=== PATIENT | female | born 1935 | race Caucasian/White ===

== ENCOUNTER 2017-04-22 13:04 | Inpatient (IN) | payer MEDICARE, BC ==
[2017-04-22 13:52] LABS: CHLORIDE,CL 98 mmol/L (98-109); SODIUM,NA 138 mmol/L (138-146)
[2017-04-22] MEDS ORDERED: Meropenem 1 GM in Sodium Chloride 0.9% 100 ML IV ONE (14:19)
[2017-04-22] MEDS ORDERED: ceFAZolin 1 GM Vial IVPUSH SCH (14:30)
[2017-04-22] MEDS ORDERED: Meropenem 1 GM in Sodium Chloride 0.9% 100 ML IV SCH ×4 (14:45)
--- NOTE | 2017-04-22 14:53 | EDM.PDOC ---
ED HPI GENERAL MEDICAL PROBLEM - General Chief Complaint: Fever Stated Complaint: fever, decreased LOC Time Seen by Provider: 04/22/17 13:04 Source of Information: Reports: EMS, [facility] Records History Limitations: Reports: Altered Mental Status - History of Present Illness INITIAL COMMENTS - FREE TEXT/NARRATIVE: [facility] staff relates that pt. noted to have decreased LOC last evening and this AM. Pt. temp. was checked and found to be 104.1 degrees F. She was given acetaminophen suppositories which decreased temp. to approx. 102 degrees F. She is normally verbal but has a history of dementia and has said very little in the past 24 hours. She has been unable to eat or feed herself and has not taken her medications. [facility] was 107/63. Staff denies coughing. Pt. is unable to provide a ROS. Onset: Today Onset Date: 04/21/17 Location: Reports: Lower Extremity, Left Associated Symptoms: Reports: Fever/Chills, Weakness - Related Data Allergies Allergy/AdvReac Type Severity Reaction Status Date / Time lisinopril Allergy Cannot Verified 02/11/14 10:22 Remember Penicillins Allergy Cannot Verified 02/11/14 10:22 Remember Home Meds: Home Meds Acetaminophen [Tylenol] 650 mg PO Q4H PRN 02/10/14 [History] Aspirin [Halfprin] 81 mg PO DAILY 02/10/14 [History] Atenolol [Tenormin] 25 mg PO DAILY 02/10/14 [History] Calcium Carbonate/Vitamin D3 [Calcium 500 + Vit D 200 Caplet] 1 tab PO BID 02/10 [History] Cyanocobalamin (Vitamin B-12) [Cyanocobalamin Injection] 1,000 mcg IM .MONTHLY 02/10/14 [History] Donepezil HCl [Donepezil HCl] 10 mg PO DAILY 02/10/14 [History] Insulin Aspart [Novolog Flexpen] 3 units SQ BRK 02/10/14 [History] Insulin Aspart [Novolog Flexpen] 10 units SQ DAILY@1200 02/10/14 [History] Insulin Aspart [Novolog Flexpen] 20 units SQ DAILY@1730 02/10/14 [History] Latanoprost [Xalatan 0.005% Ophth Soln] 1 drop EYEBOTH BEDTIME 02/10/14 [History ] Losartan Potassium [Losartan Potassium] 25 mg PO DAILY 02/10/14 [History] Memantine HCl [Namenda] 10 mg PO BID 02/10/14 [History] Methyclothiazide [Methyclothiazide] 5 mg PO DAILY 02/10/14 [History] Multivitamin [Multi Vitamin Daily] 1 tab PO DAILY 02/10/14 [History] Polyethylene Glycol 3350 [MiraLAX] 8.5 gm PO DAILY 02/10/14 [History] Spironolactone [Spironolactone] 25 mg PO DAILY 02/10/14 [History] Timolol Maleate [Timoptic-XE 0.5% Ophth Gel] 1 drop EYEBOTH DAILY 02/10/14 [ History] metFORMIN [Glucophage] 1,000 mg PO BIDM 02/10/14 [History] Ferrous Gluconate 324 mg PO DAILY 04/22/17 [History] Omeprazole 20 mg PO DAILY 04/22/17 [History] Phenylephrine HCl/Weare Butter [Preparation H Suppository] 1 each RC ASDIRECTED PRN 04/22/17 [History] Sertraline [Zoloft] 25 mg PO DAILY 04/22/17 [History] Simvastatin [Zocor] 5 mg PO BEDTIME 04/22/17 [History] Warfarin [Coumadin] 5 mg PO ASDIRECTED 04/22/17 [History] Past Medical History HEENT History: Reports: Glaucoma Cardiovascular History: Reports: High Cholesterol, Hypertension Respiratory History: Reports: PE Genitourinary History: Reports: Urinary Incontinence Neurological History: Reports: Alzheimers Disease, TIA Psychiatric History: Reports: Alzheimers Disease, Dementia Endocrine/Metabolic History: Reports: Diabetes, Type II Hematologic History: Reports: Anemia, B12 Deficiency Oncologic (Cancer) History: Reports: Breast, Lung Social & Family History - Tobacco Use Smoking Status *Q: Never Smoker ED [facility] GENERAL - Review of Systems Review Of Systems: See Below Constitutional: Reports: Fever, Fatigue, Decreased Appetite Respiratory: Denies: Shortness of Breath, Wheezing, Cough, Sputum Cardiovascular: Denies: Syncope GI/Abdominal: Denies: Black Stool, Diarrhea, Difficulty Swallowing, Distension, Hematemesis, Hematochezia, Melena, Mucous in Stool, Vomiting : Reports: Incontinence Musculoskeletal: Reports: Other (pain on palpation of L lower extremity) Skin: Reports: Erythema (L lower extremity) Neurological: Reports: No Symptoms Psychiatric: Reports: No Symptoms Hematologic/Lymphatic: Reports: No Symptoms Immunologic: Reports: No Symptoms ED EXAM, GENERAL - Physical Exam Exam: See Below Free Text/Narrative:: large area of unraised erythema noted to L lower extremity, extending from ankle to mid thigh area. This area was outlined in ink. Lung sounds were clear. Exam Limited By: Altered Mental Status General Appearance: No Apparent Distress, Obtunded Eye Exam: Bilateral Eye: EOMI, PERRL Throat/Mouth: Normal Inspection, Normal Lips, Normal Teeth, Normal Gums, Normal Oropharynx, Normal Voice, No Airway Compromise Head: Atraumatic, Normocephalic Neck: Normal Inspection, Supple, Non-Tender, Full Range of Motion Respiratory/Chest: No Respiratory Distress, Lungs Clear, Normal Breath Sounds, No Accessory Muscle Use, Chest Non-Tender Cardiovascular: Normal Peripheral Pulses, Regular Rate, Rhythm, No Edema, No Gallop, No JVD, No Murmur, No Rub Peripheral Pulses: 2+: Posterior Tibial (L), Posterior Tibial (R), Dorsalis Pedis (L), Dorsalis Pedis (R) GI/Abdominal: Normal Bowel Sounds, Soft, No Distention, No Mass, Pelvis Stable (Female) Exam: Deferred Rectal (Female) Exam: Deferred Back Exam: Normal Inspection, Full Range of Motion Extremities: Normal Range of Motion, Normal Capillary Refill, Increased Warmth ( LLE), Redness (LLE) Neurological: Normal Gait, Confused, Disoriented Psychiatric: Flat Affect Skin Exam: Warm, Dry, Intact, Other (flat, well-demarcated area of erythema to LLE) Lymphatic: No Adenopathy EKG INTERPRETATION EKG Date: 04/22/17 Rhythm: NSR Course - Vital Signs Last Recorded V/S: Last Vital Signs Temp 38.2 C H 04/22/17 13:04 Pulse 91 04/22/17 13:04 Resp 16 04/22/17 13:04 BP 115/48 L 04/22/17 13:04 Pulse Ox 95 04/22/17 13:04 - Orders/Labs/Meds Orders: Active Orders 24 hr Category Date Time Status Chest 1V Frontal [CR] Stat Exams 04/22/17 13:15 Ordered CULTURE BLOOD [BC] Stat Lab 04/22/17 13:15 Ordered CULTURE BLOOD [BC] Stat Lab 04/22/17 13:15 Ordered Meropenem [Merrem] 1 gm Med 04/22/17 14:45 Ordered Sodium Chloride 0.9% [Normal Saline] 100 ml IV Q12H Vancomycin 1,250 mg Med 04/22/17 14:45 Ordered Sodium Chloride 0.9% [Normal Saline] 250 ml IV Q24H Blood Culture x2 Reflex Set [OM.PC] Stat Oth 04/22/17 13:15 Ordered Medication Orders Meropenem 1 gm/ Sodium (Chloride) 100 mls @ 200 mls/hr IV Q12H RAHDA Last Admin: 04/22/17 14:45 Dose: 200 mls/hr Vancomycin HCl 1,250 mg/ (Sodium Chloride) 250 mls @ 200 mls/hr IV Q24H [facility] Labs: Laboratory Tests 04/22/17 04/22/17 04/22/17 Range/Units 13:30 13:32 13:32 WBC 15.0 H (4.0-10.0) x10^3/uL RBC 3.67 L (4.00-5.50) x10^6/uL Hgb 10.3 L (12.0-16.0) g/dL Hct 31.6 L (33.0-47.0) % MCV 86.1 (78.0-93.0) fL MCH 28.1 (26.0-32.0) pg MCHC 32.6 (32.0-36.0) g/dL RDW Coeff of Filipe 16.5 H (10.0-15.0) % Plt Count 297 D (130-400) x10^3/uL Neut % (Auto) 88.6 H (50.0-80.0) % Lymph % (Auto) 6.9 L (25.0-50.0) % [place] % (Auto) 4.1 (2.0-11.0) % Eos % (Auto) 0.1 (0.0-4.0) % Baso % (Auto) 0.3 (0.2-1.2) % PT 16.3 H (9.8-11.8) SEC INR 1.5 L (2.0-3.5) Sodium (138-146) mmol/L Potassium (3.5-4.9) mmol/L Chloride (98-109) mmol/L Carbon Dioxide (24-29) mmol/L BUN (8-26) mg/dL Creatinine (0.6-1.3) mg/dL Est Cr Clr Drug Dosing Estimated GFR (MDRD) Glucose (70-105) mg/dL Lactic Acid (0.4-2.0) mmol/L Calcium (8.5-10.1) mg/dL Corrected Calcium (8.5-10.1) mg/dL Phosphorus (2.6-4.7) mg/dL Magnesium (1.8-2.4) mg/dL Total Bilirubin (0.2-1.0) mg/dL AST (15-37) U/L ALT (14-59) U/L Alkaline Phosphatase (46-116) U/L Creatine Kinase (26-192) U/L POC Troponin I (0.00-0.08) ng/mL Troponin I C-Reactive Protein (<=0.9) mg/dL Total Protein (6.4-8.2) g/dL Albumin (3.4-5.0) g/dL Globulin Albumin/Globulin Ratio Urine Color Dark yellow H (YELLOW) Urine Appearance Slightly cloudy H (CLEAR) Urine pH 5.5 (5.0-8.0) Ur Specific [place] >=1.030 Urine Protein >=300 H (NEGATIVE) mg/dL Urine Glucose (UA) Negative (NEGATIVE) mg/dL Urine Ketones Negative (NEGATIVE) mg/dL Urine Occult Blood Moderate H (NEGATIVE) Urine Nitrite Negative (NEGATIVE) Urine Bilirubin Small H (NEGATIVE) Urine Urobilinogen 0.2 (0.2) EU/dL Ur Leukocyte Esterase Negative (NEGATIVE) Urine RBC 0-5 (NOT SEEN) /HPF Urine WBC 0-5 (NOT SEEN) /HPF Ur Squamous Epith Cells Rare (NEGATIVE) /HPF Amorphous Sediment Moderate Urine Bacteria Not seen (NEGATIVE) /HPF Hyaline Casts Rare H (NEGATIVE) /HPF Urine Mucus Rare H (NEGATIVE) /LPF 04/22/17 04/22/17 04/22/17 Range/Units 13:32 13:32 13:47 WBC (4.0-10.0) x10^3/uL RBC (4.00-5.50) x10^6/uL Hgb (12.0-16.0) g/dL Hct (33.0-47.0) % MCV (78.0-93.0) fL MCH (26.0-32.0) pg MCHC (32.0-36.0) g/dL RDW Coeff of [place] (10.0-15.0) % Plt Count (130-400) x10^3/uL Neut % (Auto) (50.0-80.0) % Lymph % (Auto) (25.0-50.0) % [place] % (Auto) (2.0-11.0) % Eos % (Auto) (0.0-4.0) % Baso % (Auto) (0.2-1.2) % PT (9.8-11.8) SEC INR (2.0-3.5) Sodium 138 (138-146) mmol/L Potassium 3.2 L (3.5-4.9) mmol/L Chloride 98 (98-109) mmol/L Carbon Dioxide 27 (24-29) mmol/L BUN 25 (8-26) mg/dL Creatinine 1.3 (0.6-1.3) mg/dL Est Cr Clr Drug Dosing TNP Estimated GFR (MDRD) 39 Glucose 185 H (70-105) mg/dL Lactic Acid 2.8 H* (0.4-2.0) mmol/L Calcium 8.6 (8.5-10.1) mg/dL Corrected Calcium 9.56 (8.5-10.1) mg/dL Phosphorus 2.8 (2.6-4.7) mg/dL Magnesium 1.0 L (1.8-2.4) mg/dL Total Bilirubin 0.4 (0.2-1.0) mg/dL AST 25 (15-37) U/L ALT 25 (14-59) U/L Alkaline Phosphatase 61 (46-116) U/L Creatine Kinase 102 (26-192) U/L POC Troponin I 0.00 (0.00-0.08) ng/mL Troponin I Cancelled C-Reactive Protein 33.7 H (<=0.9) mg/dL Total Protein 6.8 (6.4-8.2) g/dL Albumin 2.8 L (3.4-5.0) g/dL Globulin 4.0 Albumin/Globulin Ratio 0.70 Urine Color (YELLOW) Urine Appearance (CLEAR) Urine pH (5.0-8.0) Ur Specific [place] Urine Protein (NEGATIVE) mg/dL Urine Glucose (UA) (NEGATIVE) mg/dL Urine Ketones (NEGATIVE) mg/dL Urine Occult Blood (NEGATIVE) Urine Nitrite (NEGATIVE) Urine Bilirubin (NEGATIVE) Urine Urobilinogen (0.2) EU/dL Ur Leukocyte Esterase (NEGATIVE) Urine RBC (NOT SEEN) /HPF Urine WBC (NOT SEEN) /HPF Ur Squamous Epith Cells (NEGATIVE) /HPF Amorphous Sediment Urine Bacteria (NEGATIVE) /HPF Hyaline Casts (NEGATIVE) /HPF Urine Mucus (NEGATIVE) /LPF Meds: Medications Generic Name Dose Route Start Last Admin Trade Name Freq PRN Reason Stop Dose Admin Meropenem 1 gm/ Sodium 100 mls @ 200 mls/hr 04/22/17 14:45 04/22/17 14:45 Chloride IV 200 mls/hr Q12H RADHA Administration Vancomycin HCl 1,250 mg/ 250 mls @ 200 mls/hr 04/22/17 14:45 Sodium Chloride IV Q24H RADHA Discontinued Medications Generic Name Dose Route Start Last Admin Trade Name Freq PRN Reason Stop Dose Admin Cefazolin Sodium 1 gm 04/22/17 14:30 Ancef IVPUSH Q6H RADHA Meropenem 1 gm/ Sodium 100 mls @ 200 mls/hr 04/22/17 14:19 Chloride IV 04/22/17 14:48 ONETIME ONE Vancomycin HCl 1,250 mg/ 250 mls @ 200 mls/hr 04/22/17 14:26 Sodium Chloride IV 04/22/17 15:40 ONETIME ONE Meropenem 1 gm/ Sodium 100 mls @ 200 mls/hr 04/22/17 14:45 Chloride IV Q8H RADHA - Radiology Interpretation Free Text/Narrative:: chest x-ray is negative Departure - Departure Time of Disposition: 15:04 Disposition: Admitted As Inpatient 65 Clinical Impression: Sepsis affecting skin - Discharge Information - My Orders Last 24 Hours: My Active Orders 04/22/17 13:15 Chest 1V Frontal [CR] Stat CULTURE BLOOD [BC] Stat CULTURE BLOOD [BC] Stat Blood Culture x2 Reflex Set [OM.PC] Stat 04/22/17 14:45 Meropenem [Merrem] 1 gm Sodium Chloride 0.9% [Normal Saline] 100 ml IV Q12H Vancomycin 1,250 mg Sodium Chloride 0.9% [Normal Saline] 250 ml IV Q24H - Assessment/Plan Last 24 Hours: My Active Orders 04/22/17 13:15 Chest 1V Frontal [CR] Stat CULTURE BLOOD [BC] Stat CULTURE BLOOD [BC] Stat Blood Culture x2 Reflex Set [OM.PC] Stat 04/22/17 14:45 Meropenem [Merrem] 1 gm Sodium Chloride 0.9% [Normal Saline] 100 ml IV Q12H Vancomycin 1,250 mg Sodium Chloride 0.9% [Normal Saline] 250 ml IV Q24H Assessment:: sepsis secondary to cellulitis of L lower extremity. Plan: Discussed findings with pharmacy and Dr. Huizar. Pt. meets acute admission criteria, and will need to be admitted as such. Dr. Huizar will round on the pt. in the AM. Given the pt. PMH and lab values, she will be started on Meropenem 1 gm BID (renally adjusted) and Vancomycin 1.25mg IV BID. Pharmacy to dose vancomycin. Discussed code status with . Pt. has a history of lung CA. Her code status will be 2 with no intubation/CPR. Will continue with IV fluids at 200ml/hr for another liter of NS. Repeat lactic acid and troponin in [address] Huizar will pick this pt. up in the AM.
[2017-04-22] MEDS ORDERED: Insulin Aspart 100 Units/ML 3 ML Pen SUBCUT ONE (16:00)
[2017-04-22] MEDS ORDERED: Sodium Chloride 0.9% 1,000 ML IV ONE (16:13)
[2017-04-22] MEDS ORDERED: Sodium Chloride 0.9% 1,000 ML IV SCH (16:15)
[2017-04-22] MEDS: Insulin Aspart 100 Units/ML 3 ML Pen SUBCUT SCH (17:45)
[2017-04-22] MEDS ORDERED: Acetaminophen 650 MG Supp RECTAL PRN (18:36)
[2017-04-22] MEDS: Latanoprost 0.005% Ophth Soln 2.5 ML Bottle EYEBOTH SCH (19:57)
[2017-04-22] MEDS: Sodium Chloride 0.9% with KCl 1,000 ML IV SCH (21:30)
[2017-04-23] MEDS: Sodium Chloride 0.9% with KCl 1,000 ML IV SCH (05:35)
[2017-04-23] MEDS: Meropenem 1 GM in Sodium Chloride 0.9% 100 ML IV SCH ×2 (05:36→17:17)
[2017-04-23] MEDS: Insulin Detemir 100 Units/ML 3 ML Pen SUBCUT SCH (08:07)
[2017-04-23] MEDS ORDERED: Magnesium Sulfate/Water 2 GM in Premix Bag 1 BAG IV ONE (08:12)
[2017-04-23] MEDS ORDERED: Polyethylene Glycol 3350 Powder 17 GM Packet PO PRN (08:20)
[2017-04-23] MEDS ORDERED: Enoxaparin 30 MG/0.3 ML Syringe SUBCUT SCH ×2 (08:30)
[2017-04-23] MEDS: Timolol Maleate 0.5% Ophth Soln 5 ML Bottle EYEBOTH SCH ×2 (09:04→20:28)
[2017-04-23] MEDS: Atenolol 25 MG Tab PO SCH (09:05)
[2017-04-23] MEDS: Losartan 25 MG Tab PO SCH (09:05)
[2017-04-23] MEDS: Sertraline 25 MG Tab PO SCH (09:05)
[2017-04-23] MEDS: Spironolactone 25 MG Tab PO SCH (09:05)
[2017-04-23] MEDS: Memantine 10 MG Tab PO SCH ×2 (09:05→17:16)
[2017-04-23] MEDS: Aspirin 81 MG Tab.EC PO SCH (09:05)
[2017-04-23] MEDS: Omeprazole 20 MG Cap.CR PO SCH (09:05)
[2017-04-23] MEDS: Insulin Aspart 100 Units/ML 3 ML Pen SUBCUT SCH ×3 (09:06→17:10)
--- NOTE | 2017-04-23 09:13 | PN ---
Progress Note for EDGAR BAIG Date: 04/23/2017 Room #: VM.203 SUBJECTIVE: The patient was admitted yesterday because of fever related to [facility], and she had an elevated lactic acid. She was given both meropenem as well as vancomycin. The patient had not been eating very well either, so many of her oral medications have been held. Her blood pressure [facility] the jail had been down to 107/63, temperature up to 102, pulse 105, respirations are 18. The patient due to her dementia and expressive aphasia was not able to give much for history. She was admitted by Omega Johnson. The patient was given IV fluid resuscitation as well. To note, the patient's admit labs showed that her white blood cell count was 15.0, hemoglobin 10.3, platelets were 297 with 86 segs, 6 lymphocytes. INR was 1.5. Sodium 138, potassium 3.2, creatinine 1.3, GFR 39, glucose 185, lactic acid 2.8, magnesium 1.0. LFTs normal. CRP 33.7, albumin 2.8. Urine was dark, concentrated, but no infection. Chest x-ray was negative. Repeat lactic acid 6 hours later was 1.9. The patient throughout the night has been comfortable, was not able to express pain. She has gotten more alert. OBJECTIVE: Vital Signs: Her temperature max was 38.4 on admission, is down to 36.9; pulse is 68, blood pressure is 108/47, respirations are 18, saturations are 96%. General: She is alert. She does seem to recognize who I am. She does not speak. She is somewhat edematous throughout her body. Heart: Regular rate and rhythm. Lungs: Clear. Abdomen: Soft. Left leg has erythema from her medial thigh down to her ankle, does seem to have regressed in erythema from yesterday's markings. There is no induration. IMPRESSION: 1. Cellulitis of left leg. 2. Dehydration, which is improved. 3. Hypomagnesemia. 4. Type 2 diabetes mellitus. 5. History of breast cancer. 6. History of lung cancer. 7. History of pulmonary emboli. 8. Hypertension. 9. Cerebrovascular disease with expressive aphasia. PLAN: We will place the patient on Lovenox to cover her until her INR is back to being therapeutic. We will continue both vancomycin and meropenem until blood cultures are available. We will give IV magnesium replacement today as well as we will start oral replacement. We will resume her blood pressure medications, diuretics, as well as her anti-dementia medications and mood medications. We will offer some heat for comfort for her leg. We will have Dr. Claudine Bhakta see the patient tomorrow. We will have Physical Therapy see the patient today to see if they are able to work with any sort of strengthening the patient. I anticipate that she will go back to the jail when she gets better. Dr. Claudine Bhakta to round on the patient over the weekend in my absence. GM04/23/2017 08:29:58 MODL: 04/23/2017 09:03:14 /[id number]
[2017-04-23] MEDS: Enoxaparin 40 MG/0.4 ML Syringe SUBCUT SCH (09:14)
[2017-04-23] MEDS: [UNRECOGNIZED DRUG - OTHER] PO SCH (11:33)
[2017-04-23] MEDS: NS + KCl 20mEq/L 1,000 ML IV SCH (14:28)
[2017-04-23] MEDS: Donepezil 10 MG Tab PO SCH (17:11)
[2017-04-23] MEDS: Acetaminophen 325 MG Tab PO PRN (17:11)
[2017-04-23] MEDS ORDERED: Warfarin 5 MG Tab PO SCH (18:00)
[2017-04-23] MEDS: Latanoprost 0.005% Ophth Soln 2.5 ML Bottle EYEBOTH SCH (20:28)
[2017-04-24] MEDS: NS + KCl 20mEq/L 1,000 ML IV SCH (03:33)
[2017-04-24] MEDS: Meropenem 1 GM in Sodium Chloride 0.9% 100 ML IV SCH ×2 (05:57→18:08)
[2017-04-24] MEDS: Omeprazole 20 MG Cap.CR PO SCH (07:41)
[2017-04-24] MEDS: Spironolactone 25 MG Tab PO SCH (07:41)
[2017-04-24] MEDS: Aspirin 81 MG Tab.EC PO SCH (07:41)
[2017-04-24] MEDS: Sertraline 25 MG Tab PO SCH (07:41)
[2017-04-24] MEDS: Insulin Detemir 100 Units/ML 3 ML Pen SUBCUT SCH (07:42)
[2017-04-24] MEDS: Losartan 25 MG Tab PO SCH (07:42)
[2017-04-24] MEDS: Memantine 10 MG Tab PO SCH ×2 (07:42→18:08)
[2017-04-24] MEDS: Atenolol 25 MG Tab PO SCH (07:42)
[2017-04-24] MEDS: Insulin Aspart 100 Units/ML 3 ML Pen SUBCUT SCH ×3 (07:43→18:08)
[2017-04-24] MEDS: [UNRECOGNIZED DRUG - OTHER] PO SCH (07:43)
[2017-04-24] MEDS: Timolol Maleate 0.5% Ophth Soln 5 ML Bottle EYEBOTH SCH ×2 (07:43→20:12)
[2017-04-24] MEDS: Acetaminophen 325 MG Tab PO PRN (07:44)
[2017-04-24] MEDS: Enoxaparin 40 MG/0.4 ML Syringe SUBCUT SCH ×2 (07:44→20:12)
[2017-04-24 07:54] LABS: CHLORIDE,CL 104 mmol/L (98-107); SODIUM,NA 137 mmol/L (136-145)
[2017-04-24] MEDS ORDERED: Magnesium Oxide 400 MG Tab PO SCH (08:00)
--- NOTE | 2017-04-24 09:32 | PCM.PN ---
- General Info Date of Service: 04/24/17 Subjective Update: Patient reports she is feeling well this morning. She mentions that she is very pleased with the care she is getting. She denies any leg pain. Her leg is still slightly swollen and red but is no longer painful. She denies any fever or chills overnight. Denies any other symptoms. - Review of Systems General: Reports: No Symptoms HEENT: Reports: No Symptoms Pulmonary: Reports: No Symptoms Cardiovascular: Reports: No Symptoms Gastrointestinal: Reports: No Symptoms Genitourinary: Reports: No Symptoms Musculoskeletal: Reports: No Symptoms Skin: Reports: Other (erythema on the left leg) - Patient Data Vitals - Most Recent: Last Vital Signs Temp 36.7 C 04/24/17 06:00 Pulse 87 04/24/17 06:00 Resp 22 H 04/24/17 06:00 BP 135/50 L 04/24/17 06:00 Pulse Ox 94 L 04/24/17 06:00 Weight - Most Recent: 85.82 kg I&O - Last 24 Hours: Intake & Output 04/23/17 04/24/17 04/24/17 22:59 06:59 14:59 Intake Total 1218 1085 360 Balance 1218 1085 360 Lab Results Last 24 Hours: Laboratory Results - last 24 hr 04/23/17 04/23/17 04/23/17 Range/Units 11:12 16:59 20:32 WBC (4.0-10.0) x10^3/uL RBC (4.00-5.50) x10^6/uL Hgb (12.0-16.0) g/dL Hct (33.0-47.0) % MCV (78.0-93.0) fL MCH (26.0-32.0) pg MCHC (32.0-36.0) g/dL RDW Coeff of Filipe (10.0-15.0) % Plt Count (130-400) x10^3/uL Neut % (Auto) (50.0-80.0) % Lymph % (Auto) (25.0-50.0) % Treasure % (Auto) (2.0-11.0) % Eos % (Auto) (0.0-4.0) % Baso % (Auto) (0.2-1.2) % PT (9.8-11.8) SEC INR (2.0-3.5) Sodium (136-145) mmol/L Potassium (3.5-5.1) mmol/L Chloride (98-107) mmol/L Carbon Dioxide (21-32) mmol/L BUN (7-18) mg/dL Creatinine (0.55-1.02) mg/dL Est Cr Clr Drug Dosing mL/min Estimated GFR (MDRD) Glucose (74-106) mg/dL POC Glucose 192 H 208 H 206 H (74-106) mg/dL Calcium (8.5-10.1) mg/dL Corrected Calcium (8.5-10.1) mg/dL Magnesium (1.8-2.4) mg/dL Total Bilirubin (0.2-1.0) mg/dL AST (15-37) U/L ALT (14-59) U/L Alkaline Phosphatase (46-116) U/L C-Reactive Protein (<=0.9) mg/dL Total Protein (6.4-8.2) g/dL Albumin (3.4-5.0) g/dL Globulin Albumin/Globulin Ratio 04/24/17 04/24/17 04/24/17 Range/Units 06:03 07:19 07:19 WBC 8.6 (4.0-10.0) x10^3/uL RBC 3.30 L (4.00-5.50) x10^6/uL Hgb 9.2 L (12.0-16.0) g/dL Hct 28.6 L (33.0-47.0) % MCV 86.7 (78.0-93.0) fL MCH 27.9 (26.0-32.0) pg MCHC 32.2 (32.0-36.0) g/dL RDW Coeff of Filipe 16.1 H (10.0-15.0) % Plt Count 273 (130-400) x10^3/uL Neut % (Auto) 77.9 (50.0-80.0) % Lymph % (Auto) 11.1 L (25.0-50.0) % Treasure % (Auto) 7.1 (2.0-11.0) % Eos % (Auto) 3.6 (0.0-4.0) % Baso % (Auto) 0.3 (0.2-1.2) % PT (9.8-11.8) SEC INR (2.0-3.5) Sodium 137 (136-145) mmol/L Potassium 4.3 (3.5-5.1) mmol/L Chloride 104 (98-107) mmol/L Carbon Dioxide 23 (21-32) mmol/L BUN 15 (7-18) mg/dL Creatinine 1.2 H (0.55-1.02) mg/dL Est Cr Clr Drug Dosing 31.21 mL/min Estimated GFR (MDRD) 43 Glucose 190 H (74-106) mg/dL POC Glucose 167 H (74-106) mg/dL Calcium 8.1 L (8.5-10.1) mg/dL Corrected Calcium 9.54 (8.5-10.1) mg/dL Magnesium 1.4 L (1.8-2.4) mg/dL Total Bilirubin 0.2 (0.2-1.0) mg/dL AST 22 (15-37) U/L ALT 21 (14-59) U/L Alkaline Phosphatase 70 (46-116) U/L C-Reactive Protein < 0.2 (<=0.9) mg/dL Total Protein 6.3 L (6.4-8.2) g/dL Albumin 2.2 L (3.4-5.0) g/dL Globulin 4.1 Albumin/Globulin Ratio 0.54 /12/02 Range/Units 07:19 WBC (4.0-10.0) x10^3/uL RBC (4.00-5.50) x10^6/uL Hgb (12.0-16.0) g/dL Hct (33.0-47.0) % MCV (78.0-93.0) fL MCH (26.0-32.0) pg MCHC (32.0-36.0) g/dL RDW Coeff of Filipe (10.0-15.0) % Plt Count (130-400) x10^3/uL Neut % (Auto) (50.0-80.0) % Lymph % (Auto) (25.0-50.0) % [place] % (Auto) (2.0-11.0) % Eos % (Auto) (0.0-4.0) % Baso % (Auto) (0.2-1.2) % PT 14.2 H (9.8-11.8) SEC INR 1.3 L (2.0-3.5) Sodium (136-145) mmol/L Potassium (3.5-5.1) mmol/L Chloride (98-107) mmol/L Carbon Dioxide (21-32) mmol/L BUN (7-18) mg/dL Creatinine (0.55-1.02) mg/dL Est Cr Clr Drug Dosing mL/min Estimated GFR (MDRD) Glucose (74-106) mg/dL POC Glucose (74-106) mg/dL Calcium (8.5-10.1) mg/dL Corrected Calcium (8.5-10.1) mg/dL Magnesium (1.8-2.4) mg/dL Total Bilirubin (0.2-1.0) mg/dL AST (15-37) U/L ALT (14-59) U/L Alkaline Phosphatase (46-116) U/L C-Reactive Protein (<=0.9) mg/dL Total Protein (6.4-8.2) g/dL Albumin (3.4-5.0) g/dL Globulin Albumin/Globulin Ratio Johnson Results Last 24 Hours: Microbiology 04/22/17 15:15 MRSA Surveillance Culture - Final Nares, Unspecified NO MRSA ISOLATED Med Orders - Current: Current Medications Acetaminophen (Tylenol) 650 mg RECTAL Q6H PRN PRN Reason: Fever Greater Than 102 Acetaminophen (Tylenol) 650 mg PO Q4H PRN PRN Reason: discomfort Last Admin: 04/24/17 07:44 Dose: 650 mg Aspirin (Halfprin) 81 mg PO DAILY [facility] Last Admin: 04/24/17 07:41 Dose: 81 mg Atenolol (Tenormin) 25 mg PO DAILY [facility] Last Admin: 04/24/17 07:42 Dose: 25 mg Donepezil HCl (Aricept) 10 mg PO DAILY@1800 [facility] Last Admin: 04/23/17 17:11 Dose: 10 mg Enoxaparin Sodium (Lovenox) 40 mg SUBCUT BID [facility] Vancomycin HCl 1,250 mg/ (Sodium Chloride) 250 mls @ 200 mls/hr IV Q24H [facility] Last Admin: 04/23/17 15:16 Dose: 200 mls/hr Meropenem 1 gm/ Sodium (Chloride) 100 mls @ 33 mls/hr IV Q12H [facility] Last Admin: 04/24/17 05:57 Dose: 33 mls/hr Insulin Aspart (Novolog) 15 unit SUBCUT DAILY [facility] Last Admin: 04/24/17 07:43 Dose: 15 unit Insulin Aspart (Novolog) 20 unit SUBCUT DAILY@1200 [facility] Last Admin: 04/23/17 13:03 Dose: 20 units Insulin Aspart (Novolog) 27 unit SUBCUT DAILY@1730 [facility] Last Admin: 04/23/17 17:10 Dose: 27 unit Insulin Detemir (Levemir) 53 unit SUBCUT DAILY [facility] Last Admin: 04/24/17 07:42 Dose: 53 units Latanoprost (Xalatan 0.005% Ophth Soln) 0 ml EYEBOTH BEDTIME [facility] Last Admin: 04/23/17 20:28 Dose: 1 drop Losartan Potassium (Cozaar) 25 mg PO DAILY [facility] Last Admin: 04/24/17 07:42 Dose: 25 mg Magnesium Oxide (Magnesium Oxide) 400 mg PO BID [facility] Memantine (Namenda) 10 mg PO BIDMEALS [facility] Last Admin: 04/24/17 07:42 Dose: 10 mg Methyclothiazide [ Methyclothiazide] ( Own Supply) 0 mg PO DAILY [facility] Last Admin: 04/24/17 07:43 Dose: 5 mg Omeprazole (Omeprazole) 20 mg PO DAILY [facility] Last Admin: 04/24/17 07:41 Dose: 20 mg Polyethylene Glycol (Miralax) 8.5 gm PO DAILY PRN PRN Reason: Constipation Last Admin: 04/23/17 14:28 Dose: 8.5 gm Sertraline HCl (Zoloft) 25 mg PO DAILY [facility] Last Admin: 04/24/17 07:41 Dose: 25 mg Spironolactone (Aldactone) 25 mg PO DAILY [facility] Last Admin: 04/24/17 07:41 Dose: 25 mg Timolol Maleate (Timoptic 0.5% Ophth Soln) 0 ml EYEBOTH BID [facility] Last Admin: 04/24/17 07:43 Dose: 2 drop Warfarin Sodium (Coumadin) 5 mg PO DAILY@1800 [facility] Discontinued Medications Enoxaparin Sodium (Lovenox) 30 mg SUBCUT DAILY [facility] Last Admin: 04/23/17 09:29 Dose: Not Given Enoxaparin Sodium (Lovenox) 30 mg SUBCUT DAILY [facility] Enoxaparin Sodium (Lovenox) 40 mg SUBCUT DAILY [facility] Last Admin: 04/24/17 07:44 Dose: 40 mg Vancomycin HCl 1,250 mg/ (Sodium Chloride) 250 mls @ 200 mls/hr IV ONETIME ONE Stop: 04/22/17 15:40 Last Admin: 04/22/17 15:17 Dose: Not Given Meropenem 1 gm/ Sodium (Chloride) 100 mls @ 200 mls/hr IV Q12H [facility] Last Admin: 04/22/17 14:45 Dose: 200 mls/hr Sodium Chloride (Normal Saline) 1,000 mls @ 250 mls/hr IV ONETIME ONE Stop: 04/22/17 20:12 Last Admin: 04/22/17 16:15 Dose: 250 mls/hr Sodium Chloride (Normal Saline) 1,000 mls @ 125 mls/hr IV ASDIRECTED [facility] Potassium Chloride/Sodium Chloride (Normal Saline With 40 Meq Kcl) 1,000 mls @ 125 mls/hr IV ASDIRECTED [facility] Last Infusion: 04/23/17 12:48 Dose: 75 mls/hr Magnesium Sulfate 2 gm/ Premix 50 mls @ 25 mls/hr IV ONETIME ONE Stop: 04/23/17 10:11 Last Admin: 04/23/17 09:04 Dose: 25 mls/hr Potassium Chloride/Sodium Chloride (Normal Saline With 20 Meq Kcl) 1,000 mls @ 75 mls/hr IV ASDIRECTED [facility] Last Admin: 04/24/17 03:33 Dose: 75 mls/hr Insulin Aspart (Novolog) 2 unit SUBCUT ONETIME ONE PRN Reason: Protocol Stop: 04/22/17 16:01 Last Admin: 04/22/17 15:57 Dose: 2 units Magnesium Oxide (Magnesium Oxide) 400 mg PO DAILY [facility] Last Admin: 04/24/17 07:41 Dose: 400 mg Warfarin Sodium (Coumadin) 2.5 mg PO SuTuThSa@1800 [facility] Warfarin Sodium (Coumadin) 5 mg PO MoWeFr@1800 [facility] Last Admin: 04/23/17 17:16 Dose: 5 mg - Exam General: Alert, Cooperative, No Acute Distress HEENT: Mucous Membr. Moist/[place] Neck: Supple, Trachea Midline, No Thyromegaly. No: Lymphadenopathy Lungs: Clear to Auscultation, Normal Respiratory Effort Cardiovascular: Regular Rate, Regular Rhythm, No Murmurs GI/Abdominal Exam: Normal Bowel Sounds, Soft, Non-Tender, No Organomegaly, No Distention, No Mass Extremities: Other (Patient has faint redness that is well within the previously drawn lines; still with diffuse swelling of the left leg; no pain to palpation) Peripheral Pulses: 2+: Radial (L), Radial (R), Posterior Tibial (L), Posterior Tibial (R) Skin: Warm, Dry - Problem List & Annotations (1) Cellulitis of left leg SNOMED Code(s): 342173941 Code(s): L03.116 - CELLULITIS OF LEFT LOWER LIMB Status: Acute Current Visit: Yes Annotation/Comment:: - Improved significantly from admit. Still with some redness and swelling. - Patient is not prepared for discharge today and will not be able to return to the intermediate tomorrow. - Therefore, reasonable to continue IV antibiotics throughout the day today. - Will plan to transition from the meropenem to cefdinir tomorrow. Continue vancomyin as this has already been mixed for tomorrow. - Patient is no longer meeting sepsis criteria and is alert today; therefore, will d/c her maintenance IV fluids and let her eat and drink ad david. (2) Sepsis SNOMED Code(s): 56526669 Code(s): A41.9 - SEPSIS, UNSPECIFIED ORGANISM Status: Resolved Current Visit: Yes Qualifiers: Sepsis type: sepsis due to unspecified organism Qualified Code(s): A41.9 - Sepsis, unspecified organism Annotation/Comment:: - Patient met sepsis criteria on admit but that is now resolved. - WBC normal today; vitals stable. Did have a low grade temp yesterday afternoon but barely 24 hours after antibiotics. - No changes to antibiotics today. - Will d/c IV fluids as above. - Blood cultures negative thus far. (3) Dehydration SNOMED Code(s): 04855761 Code(s): E86.0 - DEHYDRATION Status: Resolved Current Visit: Yes Annotation/Comment:: - Patient appears well hydrated today. - Will d/c IV fluids and allow her to ad david PO's. (4) Hypomagnesemia SNOMED Code(s): 844424174 Code(s): E83.42 - HYPOMAGNESEMIA Status: Acute Current Visit: Yes Annotation/Comment:: - Magnesium still low at 1.4 today. Did not change with IV dosing yesterday. - Will increase her PO dose to BID. - Recheck magnesium in the am. (5) CVA (cerebral vascular accident) SNOMED Code(s): 419583292 Code(s): I63.9 - CEREBRAL INFARCTION, UNSPECIFIED Status: Chronic Current Visit: Yes Qualifiers: CVA mechanism: unspecified Qualified Code(s): I63.9 - Cerebral infarction, unspecified Annotation/Comment:: - Patient has history of CVA. No acute symptoms. Is alert and answering questions appropriately today. - Continue home medications. (6) Hx pulmonary embolism SNOMED Code(s): 277740964 Code(s): Z86.711 - PERSONAL HISTORY OF PULMONARY EMBOLISM Status: Chronic Current Visit: Yes Annotation/Comment:: - Patient's warfarin had been held for a few days prior to admission. - She has not been on true bridging with lovenox and would be considered a bleeding risk. She has also been borderline on renal function for use of lovenox. - That being said, her INR went down today. Therefore, will increase her lovenox to BID now that her CrCl is >30. - Will also increase her warfarin dose to 5 mg daily. - Recheck INR tomorrow. (7) Diabetes mellitus type 2 SNOMED Code(s): 16936676 Code(s): E11.9 - TYPE 2 DIABETES MELLITUS WITHOUT COMPLICATIONS Status: Chronic Priority: Medium Current Visit: No Annotation/Comment:: - Glucoses have been acceptable. - Continue current insulin regimen. (8) HTN, Benign hypertension SNOMED Code(s): 17039149 Code(s): I10 - ESSENTIAL (PRIMARY) HYPERTENSION Status: Chronic Priority : Medium Current Visit: No Annotation/Comment:: - BP's acceptable. - Home medications continued. - Problem List Review Problem List Initiated/Reviewed/Updated: Yes - My Orders Last 24 Hours: My Active Orders 04/24/17 18:00 Warfarin [Coumadin] 5 mg PO DAILY@1800 04/24/17 20:00 Enoxaparin [Lovenox] 40 mg SUBCUT BID Magnesium Oxide 400 mg PO BID - Assessment Assessment:: 81 yo female admitted with sepsis secondary to left leg cellulitis. No longer meets sepsis criteria. Cellulitis is improving. - Plan Plan:: See details under problems above. IV antibiotics will be continued today. Will plan transition to cefdinir after tonight's dose of meropenem. Since vancomycin is already mixed, will continue that through tomorrow. D/C IV fluids today. Increase lovenox and warfarin dosing. Increase PO magnesium. Otherwise, continue current medications. Patient is DNR/DNI. She is therapeutically anticoagulated. Anticipate patient to remain on acute status until Wednesday and then dismiss back to the care center.
[2017-04-24] MEDS ORDERED: Warfarin 2.5 MG Tab PO SCH (18:00)
[2017-04-24] MEDS: Donepezil 10 MG Tab PO SCH (18:08)
[2017-04-24] MEDS ORDERED: Warfarin 5 MG Tab PO SCH (20:00)
[2017-04-24] MEDS: Latanoprost 0.005% Ophth Soln 2.5 ML Bottle EYEBOTH SCH (20:12)
[2017-04-24] MEDS: Magnesium Oxide 400 MG Tab PO SCH (20:12)
--- NOTE | 2017-04-24 22:48 | PCM.SN ---
- Free Text/Narrative Note: Patient has remained afebrile today. Will transition to PO cefdinir tomorrow. Note PCN allergy. Reaction is unknown and she tolerated the meropenem (also a beta-lactam) without any issue. Therefore, she is low risk for cross reactivity but will be monitored closely after receiving her first dose of cefdinir tomorrow am.
[2017-04-25] MEDS: Insulin Aspart 100 Units/ML 3 ML Pen SUBCUT SCH ×5 (07:02→18:04)
[2017-04-25] MEDS: [UNRECOGNIZED DRUG - OTHER] PO SCH (07:02)
[2017-04-25] MEDS: Memantine 10 MG Tab PO SCH ×2 (07:03→18:04)
[2017-04-25] MEDS: Enoxaparin 40 MG/0.4 ML Syringe SUBCUT SCH (07:03)
[2017-04-25] MEDS: Cefdinir 300 MG Cap PO SCH ×2 (07:03→19:56)
[2017-04-25] MEDS: Omeprazole 20 MG Cap.CR PO SCH (07:03)
[2017-04-25] MEDS: Aspirin 81 MG Tab.EC PO SCH (07:03)
[2017-04-25] MEDS: Insulin Detemir 100 Units/ML 3 ML Pen SUBCUT SCH (07:03)
[2017-04-25] MEDS: Losartan 25 MG Tab PO SCH (07:04)
[2017-04-25] MEDS: Atenolol 25 MG Tab PO SCH (07:04)
[2017-04-25] MEDS: Spironolactone 25 MG Tab PO SCH (07:04)
[2017-04-25] MEDS: Sertraline 25 MG Tab PO SCH (07:04)
[2017-04-25] MEDS: Magnesium Oxide 400 MG Tab PO SCH ×2 (07:04→19:56)
[2017-04-25] MEDS: Timolol Maleate 0.5% Ophth Soln 5 ML Bottle EYEBOTH SCH ×2 (07:04→19:56)
--- NOTE | 2017-04-25 09:36 | PCM.PN ---
- General Info Date of Service: 04/25/17 Subjective Update: Patient states she is feeling well this morning. Nursing notes the lower leg seems more red and swollen today. Patient denies any pain, fever, or chills. She denies any other symptoms. - Review of Systems General: Reports: No Symptoms HEENT: Reports: No Symptoms Pulmonary: Reports: No Symptoms Cardiovascular: Reports: No Symptoms Gastrointestinal: Reports: No Symptoms Genitourinary: Reports: No Symptoms Musculoskeletal: Reports: No Symptoms Skin: Reports: No Symptoms - Patient Data Vitals - Most Recent: Last Vital Signs Temp 36.6 C 04/25/17 06:00 Pulse 73 04/25/17 06:00 Resp 21 H 04/25/17 06:00 BP 131/55 L 04/25/17 06:00 Pulse Ox 98 04/25/17 06:00 Weight - Most Recent: 85.82 kg I&O - Last 24 Hours: Intake & Output 04/24/17 04/25/17 04/25/17 21:59 06:59 14:59 Intake Total Balance Lab Results Last 24 Hours: Laboratory Results - last 24 hr 04/24/17 04/24/17 04/24/17 Range/Units 11:01 16:58 20:18 WBC (4.0-10.0) x10^3/uL RBC (4.00-5.50) x10^6/uL Hgb (12.0-16.0) g/dL Hct (33.0-47.0) % MCV (78.0-93.0) fL MCH (26.0-32.0) pg MCHC (32.0-36.0) g/dL RDW Coeff of Filipe (10.0-15.0) % Plt Count (130-400) x10^3/uL Add Manual Diff Neutrophils % (Manual) (50-80) % Band Neutrophils % (0-6) % Lymphocytes % (Manual) (25-50) % Monocytes % (Manual) (2-11) % Eosinophils % (Manual) (0-4) % Platelet Estimate Polychromasia Anisocytosis PT (9.8-11.8) SEC INR (2.0-3.5) Sodium (136-145) mmol/L Potassium (3.5-5.1) mmol/L Chloride (98-107) mmol/L Carbon Dioxide (21-32) mmol/L BUN (7-18) mg/dL Creatinine (0.55-1.02) mg/dL Est Cr Clr Drug Dosing mL/min Estimated GFR (MDRD) Glucose (74-106) mg/dL POC Glucose 286 H 271 H 319 H (74-106) mg/dL Calcium (8.5-10.1) mg/dL Magnesium (1.8-2.4) mg/dL 04/24/17 04/25/17 04/25/17 Range/Units 22:02 05:18 06:20 WBC (4.0-10.0) x10^3/uL RBC (4.00-5.50) x10^6/uL Hgb (12.0-16.0) g/dL Hct (33.0-47.0) % MCV (78.0-93.0) fL MCH (26.0-32.0) pg MCHC (32.0-36.0) g/dL RDW Coeff of Filipe (10.0-15.0) % Plt Count (130-400) x10^3/uL Add Manual Diff Neutrophils % (Manual) (50-80) % Band Neutrophils % (0-6) % Lymphocytes % (Manual) (25-50) % Monocytes % (Manual) (2-11) % Eosinophils % (Manual) (0-4) % Platelet Estimate Polychromasia Anisocytosis PT 16.3 H (9.8-11.8) SEC INR 1.5 L (2.0-3.5) Sodium (136-145) mmol/L Potassium (3.5-5.1) mmol/L Chloride (98-107) mmol/L Carbon Dioxide (21-32) mmol/L BUN (7-18) mg/dL Creatinine (0.55-1.02) mg/dL Est Cr Clr Drug Dosing mL/min Estimated GFR (MDRD) Glucose (74-106) mg/dL POC Glucose 302 H 306 H (74-106) mg/dL Calcium (8.5-10.1) mg/dL Magnesium (1.8-2.4) mg/dL 04/25/17 04/25/17 Range/Units 06:20 06:20 WBC 7.1 (4.0-10.0) x10^3/uL RBC 3.63 L (4.00-5.50) x10^6/uL Hgb 9.9 L (12.0-16.0) g/dL Hct 31.4 L (33.0-47.0) % MCV 86.5 (78.0-93.0) fL MCH 27.3 (26.0-32.0) pg MCHC 31.5 L (32.0-36.0) g/dL RDW Coeff of Filipe 16.2 H (10.0-15.0) % Plt Count 312 (130-400) x10^3/uL Add Manual Diff Yes Neutrophils % (Manual) 77 (50-80) % Band Neutrophils % 2 (0-6) % Lymphocytes % (Manual) 12 L (25-50) % Monocytes % (Manual) 2 (2-11) % Eosinophils % (Manual) 7 H (0-4) % Platelet Estimate Adequate Polychromasia 1+ slight H Anisocytosis 1+ slight H PT (9.8-11.8) SEC INR (2.0-3.5) Sodium 137 (136-145) mmol/L Potassium 4.5 (3.5-5.1) mmol/L Chloride 103 (98-107) mmol/L Carbon Dioxide 26 (21-32) mmol/L BUN 17 (7-18) mg/dL Creatinine 1.2 H (0.55-1.02) mg/dL Est Cr Clr Drug Dosing 31.21 mL/min Estimated GFR (MDRD) 43 Glucose 326 H (74-106) mg/dL POC Glucose (74-106) mg/dL Calcium 8.8 (8.5-10.1) mg/dL Magnesium 1.5 L (1.8-2.4) mg/dL Med Orders - Current: Current Medications Acetaminophen (Tylenol) 650 mg RECTAL Q6H PRN PRN Reason: Fever Greater Than 102 Acetaminophen (Tylenol) 650 mg PO Q4H PRN PRN Reason: discomfort Last Admin: 04/24/17 07:44 Dose: 650 mg Aspirin (Halfprin) 81 mg PO DAILY [facility] Last Admin: 04/25/17 07:03 Dose: 81 mg Atenolol (Tenormin) 25 mg PO DAILY [facility] Last Admin: 04/25/17 07:04 Dose: 25 mg Cefdinir (Omnicef) 300 mg PO BID [facility] Last Admin: 04/25/17 07:03 Dose: 300 mg Donepezil HCl (Aricept) 10 mg PO DAILY@1800 [facility] Last Admin: 04/24/17 18:08 Dose: 10 mg Enoxaparin Sodium (Lovenox) 40 mg SUBCUT BID [facility] Last Admin: 04/25/17 07:03 Dose: 40 mg Vancomycin HCl 1,250 mg/ (Sodium Chloride) 250 mls @ 200 mls/hr IV Q24H [facility] Last Admin: 04/24/17 14:45 Dose: 200 mls/hr Insulin Aspart (Novolog) 15 unit SUBCUT DAILY [facility] Last Admin: 04/25/17 07:02 Dose: 15 unit Insulin Aspart (Novolog) 20 unit SUBCUT DAILY@1200 [facility] Last Admin: 04/24/17 12:04 Dose: 20 units Insulin Aspart (Novolog) 27 unit SUBCUT DAILY@1730 [facility] Last Admin: 04/24/17 18:08 Dose: 27 unit Insulin Aspart (Novolog) 0 unit SUBCUT TIDMEALS [facility] PRN Reason: Protocol Insulin Detemir (Levemir) 53 unit SUBCUT DAILY [facility] Last Admin: 04/25/17 07:03 Dose: 53 units Latanoprost (Xalatan 0.005% Oph Soln) 0 ml EYEBOTH BEDTIME [facility] Last Admin: 04/24/17 20:12 Dose: 1 drop Losartan Potassium (Cozaar) 25 mg PO DAILY [facility] Last Admin: 04/25/17 07:04 Dose: 25 mg Magnesium Oxide (Magnesium Oxide) 400 mg PO BID [facility] Last Admin: 04/25/17 07:04 Dose: 400 mg Memantine (Namenda) 10 mg PO BIDMEALS [facility] Last Admin: 04/25/17 07:03 Dose: 10 mg Methyclothiazide [ Methyclothiazide] ( Own Supply) 0 mg PO DAILY [facility] Last Admin: 04/25/17 07:02 Dose: 5 mg Omeprazole (Omeprazole) 20 mg PO DAILY [facility] Last Admin: 04/25/17 07:03 Dose: 20 mg Polyethylene Glycol (Miralax) 8.5 gm PO DAILY PRN PRN Reason: Constipation Last Admin: 04/23/17 14:28 Dose: 8.5 gm Sertraline HCl (Zoloft) 25 mg PO DAILY [facility] Last Admin: 04/25/17 07:04 Dose: 25 mg Spironolactone (Aldactone) 25 mg PO DAILY [facility] Last Admin: 04/25/17 07:04 Dose: 25 mg Timolol Maleate (Timoptic 0.5% Ophth Soln) 0 ml EYEBOTH BID [facility] Last Admin: 04/25/17 07:04 Dose: 2 drop Warfarin Sodium (Coumadin) 2.5 mg PO SuTuThSa@1999 [facility] Warfarin Sodium (Coumadin) 5 mg PO MoWeFr@1999 [facility] Discontinued Medications Enoxaparin Sodium (Lovenox) 30 mg SUBCUT DAILY [facility] Last Admin: 04/23/17 09:29 Dose: Not Given Enoxaparin Sodium (Lovenox) 30 mg SUBCUT DAILY [facility] Enoxaparin Sodium (Lovenox) 40 mg SUBCUT DAILY [facility] Last Admin: 04/24/17 07:44 Dose: 40 mg Vancomycin HCl 1,250 mg/ (Sodium Chloride) 250 mls @ 200 mls/hr IV ONETIME ONE Stop: 04/22/17 15:40 Last Admin: 04/22/17 15:17 Dose: Not Given Meropenem 1 gm/ Sodium (Chloride) 100 mls @ 200 mls/hr IV Q12H [facility] Last Admin: 04/22/17 14:45 Dose: 200 mls/hr Meropenem 1 gm/ Sodium (Chloride) 100 mls @ 33 mls/hr IV Q12H [facility] Last Admin: 04/24/17 18:08 Dose: 33 mls/hr Sodium Chloride (Normal Saline) 1,000 mls @ 250 mls/hr IV ONETIME ONE Stop: 04/22/17 20:12 Last Admin: 04/22/17 16:15 Dose: 250 mls/hr Sodium Chloride (Normal Saline) 1,000 mls @ 125 mls/hr IV ASDIRECTED [facility] Potassium Chloride/Sodium Chloride (Normal Saline With 40 Meq Kcl) 1,000 mls @ 125 mls/hr IV ASDIRECTED [facility] Last Infusion: 04/23/17 12:48 Dose: 75 mls/hr Magnesium Sulfate 2 gm/ Premix 50 mls @ 25 mls/hr IV ONETIME ONE Stop: 04/23/17 10:11 Last Admin: 04/23/17 09:04 Dose: 25 mls/hr Potassium Chloride/Sodium Chloride (Normal Saline With 20 Meq Kcl) 1,000 mls @ 75 mls/hr IV ASDIRECTED [facility] Last Admin: 04/24/17 03:33 Dose: 75 mls/hr Insulin Aspart (Novolog) 2 unit SUBCUT ONETIME ONE PRN Reason: Protocol Stop: 04/22/17 16:01 Last Admin: 04/22/17 15:57 Dose: 2 units Magnesium Oxide (Magnesium Oxide) 400 mg PO DAILY [facility] Last Admin: 04/24/17 07:41 Dose: 400 mg Warfarin Sodium (Coumadin) 2.5 mg PO SuTuThSa@1800 [facility] Warfarin Sodium (Coumadin) 5 mg PO MoWeFr@1800 [facility] Last Admin: 04/23/17 17:16 Dose: 5 mg Warfarin Sodium (Coumadin) 5 mg PO DAILY@1999 [facility] Last Admin: 04/24/17 20:12 Dose: 5 mg - Exam General: Alert, Cooperative, No Acute Distress HEENT: Mucous Membr. Moist/[place] Neck: Supple, Trachea Midline, No Thyromegaly. No: Lymphadenopathy Lungs: Clear to Auscultation, Normal Respiratory Effort Cardiovascular: Regular Rate, Regular Rhythm, No Murmurs GI/Abdominal Exam: Normal Bowel Sounds, Soft, Non-Tender, No Organomegaly, No Distention, No Mass Extremities: Other (left lower leg is erythematous and edematous; initial area of outlined erythema is completely cleared up; patient has no pain to palpation and has normal passive and active ankle ROM without tenderness; right leg normal ) Peripheral Pulses: 1+: Radial (L), Radial (R) Skin: Warm, Dry - Problem List & Annotations (1) Cellulitis of left leg SNOMED Code(s): 004958796 Code(s): L03.116 - CELLULITIS OF LEFT LOWER LIMB Status: Acute Current Visit: Yes Annotation/Comment:: - Improved significantly from admit. Increased area of erythema and edema is in a dependent area; as labs continue to improve, I do not think this represents true worsening of her cellulitis. - Patient transitioned to cefdinir this morning without incident. Will do 1 more dose of vancomyin today as this has already been mixed. - Nursing to call if the erythema and edema in the lower leg is worsening throughout the day today. (2) Sepsis SNOMED Code(s): 34289259 Code(s): A41.9 - SEPSIS, UNSPECIFIED ORGANISM Status: Resolved Current Visit: Yes Qualifiers: Sepsis type: sepsis due to unspecified organism Qualified Code(s): A41.9 - Sepsis, unspecified organism Annotation/Comment:: - Patient met sepsis criteria on admit but that is now resolved. - WBC remain normal today; vitals stable. Afebrile for >24 hours. - Antibiotics as above. - Ad david PO's. Will restart IV fluids PRN. - Blood cultures negative thus far. (3) Dehydration SNOMED Code(s): 98720675 Code(s): E86.0 - DEHYDRATION Status: Resolved Current Visit: Yes Annotation/Comment:: - Patient appears well hydrated today. - Will d/c IV fluids and allow her to ad david PO's. (4) Hypomagnesemia SNOMED Code(s): 339083104 Code(s): E83.42 - HYPOMAGNESEMIA Status: Acute Current Visit: Yes Annotation/Comment:: - Magnesium up to 1.5 today. - Continue BID PO dosing. - Recheck magnesium in the am. (5) CVA (cerebral vascular accident) SNOMED Code(s): 294817428 Code(s): I63.9 - CEREBRAL INFARCTION, UNSPECIFIED Status: Chronic Current Visit: Yes Qualifiers: CVA mechanism: unspecified Qualified Code(s): I63.9 - Cerebral infarction, unspecified Annotation/Comment:: - Patient has history of CVA. No acute symptoms. Is alert and answering questions appropriately today. - Continue home medications. (6) Hx pulmonary embolism SNOMED Code(s): 622430975 Code(s): Z86.711 - PERSONAL HISTORY OF PULMONARY EMBOLISM Status: Chronic Current Visit: Yes Annotation/Comment:: - Patient's warfarin had been held for a few days prior to admission. - INR up to 1.5. - CrCl remains >30. Continue prophylactic lovenox dosing at 0.5 mg/kg. - Will change warfarin back to her home dosing. - Recheck INR tomorrow. (7) Diabetes mellitus type 2 SNOMED Code(s): 00813037 Code(s): E11.9 - TYPE 2 DIABETES MELLITUS WITHOUT COMPLICATIONS Status: Chronic Priority: Medium Current Visit: No Annotation/Comment:: - Glucoses rising as she is eating better. - Continue home insulin regimen. - Will also add low dose aspart correction scale with meals. (8) HTN, Benign hypertension SNOMED Code(s): 88090230 Code(s): I10 - ESSENTIAL (PRIMARY) HYPERTENSION Status: Chronic Priority : Medium Current Visit: No Annotation/Comment:: - BP's acceptable. - Home medications continued. - Problem List Review Problem List Initiated/Reviewed/Updated: Yes - My Orders Last 24 Hours: My Active Orders 04/24/17 20:00 Enoxaparin [Lovenox] 40 mg SUBCUT BID Magnesium Oxide 400 mg PO BID 04/25/17 08:00 Cefdinir [Omnicef] 300 mg PO BID 04/25/17 12:00 Insulin Aspart [NovoLOG] See Protocol SUBCUT TIDMEALS 04/25/17 20:00 Warfarin [Coumadin] 2.5 mg PO SuTuThSa@199904/26/17 20:00 Warfarin [Coumadin] 5 mg PO MoWeFr@1999 - Assessment Assessment:: 81 yo female admitted with sepsis secondary to left leg cellulitis. No longer meets sepsis criteria. Cellulitis continues to improve. - Plan Plan:: See details under problems above. Transition to cefdinir today; 1 more dose of vancomycin today. Continue lovenox dosing; will change warfarin back to home dosing. Continue PO magnesium. Otherwise, continue current medications. Patient is DNR/DNI. She is therapeutically anticoagulated. Anticipate patient will be prepared tomorrow to dismiss back to the care center.
[2017-04-25] MEDS: Donepezil 10 MG Tab PO SCH (18:04)
[2017-04-25] MEDS: Latanoprost 0.005% Ophth Soln 2.5 ML Bottle EYEBOTH SCH (19:56)
[2017-04-25] MEDS ORDERED: Warfarin 2.5 MG Tab PO SCH (20:00)
[2017-04-26 06:08] VITALS: BP 121/56
[2017-04-26] MEDS: Omeprazole 20 MG Cap.CR PO SCH (07:18)
[2017-04-26] MEDS: Losartan 25 MG Tab PO SCH (07:18)
[2017-04-26] MEDS: Memantine 10 MG Tab PO SCH (07:19)
[2017-04-26] MEDS: Atenolol 25 MG Tab PO SCH (07:19)
[2017-04-26] MEDS: Spironolactone 25 MG Tab PO SCH (07:19)
[2017-04-26] MEDS: Sertraline 25 MG Tab PO SCH (07:19)
[2017-04-26] MEDS: Aspirin 81 MG Tab.EC PO SCH (07:19)
[2017-04-26] MEDS: Magnesium Oxide 400 MG Tab PO SCH (07:20)
[2017-04-26] MEDS: Insulin Detemir 100 Units/ML 3 ML Pen SUBCUT SCH (07:21)
[2017-04-26] MEDS: [UNRECOGNIZED DRUG - OTHER] PO SCH (07:23)
[2017-04-26] MEDS: Insulin Aspart 100 Units/ML 3 ML Pen SUBCUT SCH ×2 (07:24)
[2017-04-26] MEDS: Cefdinir 300 MG Cap PO SCH (07:26)
[2017-04-26] MEDS: Timolol Maleate 0.5% Ophth Soln 5 ML Bottle EYEBOTH SCH (07:26)
[2017-04-26] MEDS ORDERED: Enoxaparin 40 MG/0.4 ML Syringe SUBCUT SCH (08:00)
[2017-04-26] MEDS ORDERED: Magnesium Oxide 400 MG Tab PO SCH (12:00)
[2017-04-26] MEDS ORDERED: Warfarin 5 MG Tab PO SCH (20:00)
--- NOTE | 2017-04-27 05:42 | DISCH ---
PRIMARY DIAGNOSES: 1. Cellulitis of left lower leg. 2. Dehydration. 3. Type 2 diabetes mellitus. 4. Severe Alzheimer dementia. 5. Breast cancer. 6. Lung cancer. 7. Chronic kidney disease. 8. Hypertension. 9. Hypomagnesemia. SUMMARY OF ADMIT HISTORY AND PHYSICAL: The patient is an 81-year-old female who was evaluated in the emergency room on 04/22/2017. She came into the emergency room with fever, unable to keep foods down, very weak, and lethargic. Her temperature is 38.2, pulse 91, respirations 16, blood pressure is 115/48, saturations are 95. Her left lower extremity was extremely red, tender, and swollen. The patient had blood cultures drawn. She was given meropenem 1 gram as well as vancomycin 1.2 mg. Her white blood cell count was 15.0, hemoglobin 10.3, platelets 297 with 88 segs, 6 lymphocytes, and 4 monocytes. Her INR was 1.5. Her urine was very concentrated, dark, greater than 1.030 specific gravity of protein present, small bilirubin, 0 to 5 white blood cells, 0 to 5 red blood cells, moderate sediment. Her sodium was 138, potassium 3.2, creatinine 1.3, GFR was 39, glucose 185, lactic acid 2.8, calcium 8.6, magnesium 1.0, AST 25, ALT 25, alkaline phosphatase 61, troponin actually was 0, CRP was 33.7, and albumin 2.8. SUMMARY OF HOSPITAL COURSE: She was given IV hydration. Her oral metformin had been held. She was placed on a sliding scale insulin. She was checked for MRSA that did come back negative. Her blood cultures came back negative. Heat was applied to her leg. Her leg greatly improved with elevation and Rogerio wrap. She was given oral magnesium. She was given IV potassium. She was placed on Lovenox for DVT prophylaxis and with her prior history of blood clots until her INR was back to near therapeutic. Her hemoglobin had dropped down to 9.2; after hydration, was up to 10.2 on the day of discharge. White blood cell count had gone from 15.0 on admission, was down to 8.9 on 04/26/2017. Her INR was up to 1.8 on 04/26/2017. Her potassium had quickly improved to 4.3. Her IV potassium had been reduced and then her diet had been advanced and IV fluids have been stopped. On 04/26/2017, her potassium was 3.2. Her creatinine was 1.3 on admission, it had dropped down to 1.1, felt to be at her baseline. GFR had improved up from 39 on admission up to 48, which was felt to be her baseline. Her glucose was monitored and treated with sliding scale. Her magnesium had been treated with IV magnesium and then oral, had slowly increased, it was up to 1.5 at discharge and so she will be increased from b.i.d. to t.i.d. at the time of discharge. Her CRP had not been checked since admission. The patient to note was aphasic and could not really describe much of her care. She had had an EKG that had shown sinus rhythm with borderline left axis deviation, nonspecific T-wave abnormality. On admission, her chest x-ray was done, which was read out as being negative with no acute process going on. MEDICATIONS: Current medications at the time of discharge will be: 1. Cefdinir 300 mg 1 pill twice a day for 7 days. 2. Magnesium oxide 300 mg 1 pill 3 times a day. 3. Coumadin 2.5 mg Wednesday, Wednesday, , Wednesday; 5 mg Wednesday, Wednesday, Wednesday. Otherwise, her admit medications, which were: 1. Acetaminophen 650 q.4 hours p.r.n. 2. Aspirin 81 mg 1 pill daily. 3. Atenolol 25 mg 1 pill daily. 4. Calcium with vitamin D 500/200 one pill twice a day. 5. Vitamin B12, 1000 mcg shot monthly. 6. Aricept 10 mg 1 pill at bedtime. 7. Ferrous gluconate 325 mg 1 pill daily. 8. Basaglar 53 units at bedtime. 9. NovoLog 27 units at 5 p.m., 20 units at noon, and 15 units in the morning. 10.Xalatan 0.005% eyedrops, 1 drop in both eyes at bedtime. 11.Losartan 25 mg 1 pill daily. 12.Namenda 10 mg 1 pill twice a day. 13.Calmoseptine ointment. 14.Methyclothiazide 5 mg 1 pill daily. 15.Multivitamin 1 pill daily. 16.Omeprazole 20 mg 1 pill daily. 17.Preparation H suppository daily as needed for hemorrhoids. 18.MiraLax 8.5 g oral daily as needed for constipation. 19.Zoloft 25 mg daily. 20.Simvastatin 5 mg 1 pill daily. 21.Spironolactone 25 mg 1 pill daily. 22.Timoptic-XE 0.5% gel 2 drops twice a day. 23.Metformin 1000 mg 1 pill twice a day. To note, the patient will need to have an Rogerio wrap on her left leg to help with fluid and healing. The patient also has had a decubitus ulcer on admit and will be continued to treat with PolyMem type dressing. The patient will need to have lab done on 04/29/2017 to include an INR, which will be managed by the [facility]; magnesium level for hypomagnesemia; CBC for cellulitis; and basic metabolic profile for hypertension. Her code level status at the time of discharge is do not resuscitate/do not intubate. Her diet will stay, which she had been on admit from the Care Center. To note, D-dimer was not done as the patient was already on Coumadin and she has had previous blood clots, so possibly may have been positive, but she definitely had cellulitis that was present on her legs. GM04/26/2017 08:29:40 MODL: 04/27/2017 05:24:46 /[id number]
== END 2017-04-26 08:50 | DRG 872 ==
LOC: VM.ED 13:04 → VM.MS 14:45
PROVIDERS: ADMIT Family Medicine; ATTEND Family Medicine
DX: A41.9 Sepsis, unspecified organism (principal); L03.116 Cellulitis of left lower limb; L89.90 Pressure ulcer of unspecified site, unspecified stage; E86.0 Dehydration; E83.42 Hypomagnesemia; Z85.3 Personal history of malignant neoplasm of breast; Z85.118 Personal history of other malignant neoplasm of bronchus and lung; Z86.711 Personal history of pulmonary embolism; Z79.01 Long term (current) use of anticoagulants; I10 Essential (primary) hypertension; E78.00 Pure hypercholesterolemia, unspecified; I69.320 Aphasia following cerebral infarction; I12.9 Hypertensive chronic kidney disease with stage 1 through stage 4 chronic kidney disease, or unspecified chronic kidney disease; E11.22 Type 2 diabetes mellitus with diabetic chronic kidney disease; N18.9 Chronic kidney disease, unspecified; G30.9 Alzheimer's disease, unspecified; F02.80 Dementia in other diseases classified elsewhere, unspecified severity, without behavioral disturbance, psychotic disturbance, mood disturbance, and anxiety; H40.9 Unspecified glaucoma; Z88.0 Allergy status to penicillin; Z88.8 Allergy status to other drugs, medicaments and biological substances; Z79.84 Long term (current) use of oral hypoglycemic drugs; Z79.82 Long term (current) use of aspirin; Z79.4 Long term (current) use of insulin; Z79.899 Other long term (current) drug therapy
CPT/HCPCS: 36415; 71045; 80048; 80053; 81001; 82550; 82962; 83605; 83735; 84100; 84484; 85025; 85610; 86140; 87040; 93005; 96365; 99285; A9270-GY; J1650; J1815-GY; J2185; J3370; J3475; J3480; J7030; J7050